=== PATIENT | male | born 1995 | race Hispanic/Latino ===

== ENCOUNTER 2019-09-29 14:43 | Emergency (ER) | payer SELFPAY ==
[2019-09-29 15:14] VITALS: BP 130/91
[2019-09-29] MEDS ORDERED: LIDOCAINE 1%/EPINEPHRINE 1:100,000 VIAL (20 ML) INFILTRATI ONE (15:47)
--- NOTE | 2019-09-29 15:49 | Emergency Department Report ---
- General Chief Complaint: Laceration/Recheck/Suture Stated Complaint: HIT HEAD ON DOOR Time Seen by Provider: 09/29/19 15:18 Source: EMS Mode of arrival: Stretcher Limitations: No Limitations - History of Present Illness Initial Comments: 24-year-old male with a past medical history of Crohn's disease, mood disorder, polysubstance abuse presents from [facility] with head injury. Patient states another resident picked him up and patient struck his head on the door causing a laceration. No LOC reported. Patient is drowsy upon arrival. As per MAR patient did receive Risperdal, Benadryl IM 50 mg, and 1 mg IM Ativan and other scheduled medications about 8 to 9 AM this morning. Patient has a laceration to his left scalp. No pain reported. Alert and oriented x3. Patient does not recall his last tetanus injection - Related Data Allergies Allergy/AdvReac Type Severity Reaction Status Date / Time No Known Allergies Allergy Unverified 09/29/19 15:42 ED Review of Systems ROS: Stated complaint: HIT HEAD ON DOOR Other details as noted in HPI Comment: All other systems reviewed and negative ED Past Medical Hx - Past Medical History Previous Medical History?: No Hx Psychiatric Treatment: Yes (Mood disorder polysubstance abuse) Additional medical history: Crohn's disease - Surgical History Past Surgical History?: No - Social History Smoking Status: Never Smoker Substance Use Type: Marijuana ED Physical Exam - General Limitations: No Limitations - Other Other exam information: General: No acute distress Head: Atraumatic Eyes: normal appearance ENT: Moist mucous membranes Neck: Normal appearance, no midline tenderness Chest: Clear to auscultation bilaterally CV: Regular rate and rhythm Abdomen: Soft, normal bowel sounds, nontender, nondistended, no rebound or guarding Back: Normal inspection Extremity: Normal inspection, full range of motion Neuro: drowsy but arousable O x 3, no facial asymmetry, speech clear, no gross motor sensory deficit Psych: Appropriate behavior Skin: No rash ED Course Vital Signs 09/29/19 09/29/19 15:00 15:44 Temperature 97.7 F Pulse Rate 105 H Respiratory 18 Rate Blood Pressure 130/91 O2 Sat by Pulse 98 Oximetry - Laceration /Wound Repair Left Head Wound Location: head (left temporal) Wound Length (cm): 2 Wound's Depth, Shape: linear Wound Explored: clean Betadine Prep?: Yes Anesthesia: Lidocaine w/ Epi Volume Anesthetic (ccs): 3 Wound Debrided: minimal Number of Sutures: 3 (selena) Layer Closure?: No Sterile Dressing Applied?: No ED Medical Decision Making - Radiology Data Radiology results: report reviewed CT HEAD WITHOUT CONTRAST INDICATION / CLINICAL INFORMATION: Head injury resulting in scalp laceration. Drowsiness. TECHNIQUE: All CT scans at this location are performed using CT dose reduction for ALARA by means of automated exposure control. COMPARISON: None available. FINDINGS: HEMORRHAGE: No evidence of intracranial hemorrhage or extra-axial fluid collection. EXTRA-AXIAL SPACES: Cortical sulci, sylvian fissures and basilar cisterns have an unremarkable appearance. VENTRICULAR SYSTEM: The ventricular system is of normal size and configuration. CEREBRAL PARENCHYMA: No areas of abnormal brain parenchymal attenuation are identified. There is no indication of recent infarction. MIDLINE SHIFT OR HERNIATION: There is no mass effect. CEREBELLUM / BRAINSTEM: Brainstem and cerebellum have an unremarkable appearance. INTRACRANIAL VESSELS:No abnormalities are identified on this noncontrast head CT. ORBITS: visualized portions of the orbits have an unremarkable appearance. SOFT TISSUES of HEAD: Scalp selena are present closing a left frontoparietal scalp laceration. CALVARIUM: Evaluation of bone windows reveals no abnormalities. PARANASAL SINUSES / MASTOID AIR CELLS: Paranasal sinuses are free from inflammatory mucosal disease. Mastoid air cells are normally pneumatized. ADDITIONAL FI NDINGS: None. IMPRESSION: 1. No intracranial abnormality. 2. Left frontoparietal scalp laceration. - Medical Decision Making Patient presents to the hospital with laceration and head injury. No LOC. Overall appears a low risk for intracranial injury however, patient is drowsiness during examination makes it difficult to assess mental status. I suspect that he is drowsy due to medications received prior to arrival however, given signs of head injury CT head was performed. - Differential Diagnosis Laceration, head injury, ICH Critical Care Time: No Critical care attestation.: If time is entered above; I have spent that time in minutes in the direct care of this critically ill patient, excluding procedure time. ED Disposition Clinical Impression: Scalp laceration Disposition: DC-01 TO HOME OR SELFCARE Is pt being admited?: No Does the pt Need Aspirin: No Condition: Stable Instructions: Diphtheria/Acellular Pertussis/Tetanus Booster Vaccine (Tdap) (Injection), Laceration (ED) Additional Instructions: Take Motrin or tyenol as needed for pain. Follow-up with your doctor or doctor/clinic provided. Return if symptoms worsen as indicated by your discharge instructions. Whitetail should be removed in 7-10 days. You did receive a tetanus booster shot today. Referrals: GABRIELA ROCHA MD [Staff Physician] - 7-10 days [facility] [Provider Group] - 7-10 days Time of Disposition: 16:40
[2019-09-29] MEDS ORDERED: LIDOCAINE 1%/EPINEPHRINE 1:100,000 VIAL (20 ML) INFILTRATI NR (16:00)
[2019-09-29] MEDS ORDERED: TETANUS,DIPH,PERTUSS(ACELL) VACCINE 0.5 ML SYRINGE IM ONE (16:02)
--- NOTE | 2019-09-29 16:37 | Cat Scan Report ---
CT HEAD WITHOUT CONTRAST INDICATION / CLINICAL INFORMATION: Head injury resulting in scalp laceration. Drowsiness. TECHNIQUE: All CT scans at this location are performed using CT dose reduction for ALARA by means of automated e xposure control. COMPARISON: None available. FINDINGS: HEMORRHAGE: No evidence of intracranial hemorrhage or extra-axial fluid collection. EXTRA-AXIAL SPACES: Cortical sulci, sylvian fissures and basilar cisterns have an unremarkable appear ance. VENTRICULAR SYSTEM: The ventricular system is of normal size and configuration. CEREBRAL PARENCHYMA: No areas of abnormal brain parenchymal attenuation are identified. There is no i ndication of recent infarction. MIDLINE SHIFT OR HERNIATION: There is no mass effect. CEREBELLUM / BRAINSTEM: Brainstem and cerebellum have an unremarkable appearance. INTRACRANIAL VESSELS:No abnormalities are identified on this noncontrast head CT. ORBITS: visualized portions of the orbits have an unremarkable appearance. SOFT TISSUES of HEAD: Scalp selena are present closing a left frontoparietal scalp laceration. CALVARIUM: Evaluation of bone windows reveals no abnormalities. PARANASAL SINUSES / MASTOID AIR CELLS: Paranasal sinuses are free from inflammatory mucosal disease. Mastoid air cells are normally pneumatized. ADDITIONAL FINDINGS: None. IMPRESSION: 1. No intracranial abnormality. 2. Left frontoparietal scalp laceration. Signer Name: Rich Mehta MD Signed: 09/29/2019 4:32 PM Workstation Name: [id number]
== END 2019-09-29 16:58 | disposition home or self-care (01) ==
LOC: ED 14:43
DX: S01.01XA Laceration without foreign body of scalp, initial encounter (principal); F12.90 Cannabis use, unspecified, uncomplicated; W22.8XXA Striking against or struck by other objects, initial encounter; Y93.89 Activity, other specified; Y92.89 Other specified places as the place of occurrence of the external cause; Y99.8 Other external cause status
CPT/HCPCS: 70450; 90471; 90715; 99283